=== PATIENT | female | born 1995 | race African-American/Black ===

== ENCOUNTER 2024-11-19 13:03 | Emergency (ER) | payer SELFPAY ==
[~2024-11-19] VITALS: Ht 175.3 cm; Wt 90.0 kg
[2024-11-19 13:05] VITALS: O2SAT 100
[2024-11-19 14:57] VITALS: BP 109/66; PULSE 86; RESP 18; TEMP 36.4; O2SAT 97
== END 2024-11-19 14:59 | disposition home or self-care (01) ==
LOC: ER 13:22
DX: R41.82 Altered mental status, unspecified (principal)
CPT/HCPCS: 99283